=== PATIENT | male | born 1970 | race Caucasian/White ===

== ENCOUNTER 2016-06-30 07:25 | Inpatient (IN) | payer OTHER ==
[~2016-06-30 07:25] MED LIST: DEXAMETHASONE 4 MG/ML VIAL ONE; LIDOCAINE 2% 5 ML SDV ONE; PROPOFOL/EMULSION 500 MG/50 ML BOTTLE IV ONE; ROCURONIUM 100 MG/10 ML VIAL ONE; fentaNYL 250 MCG/5 ML INJ ONE
[2016-06-30] MEDS ORDERED: LIDOCAINE 1% 5 ML SDV ONE ×2 (07:34→07:49)
[2016-06-30] MEDS ORDERED: BUPIVACAINE/EPI 0.5% 30 ML SDV ONE (07:40)
[2016-06-30] MEDS ORDERED: SKIN ADHESIVE (DERMABOND) 1 EACH TP ONE ×2 (07:40→13:22)
[2016-06-30] MEDS ORDERED: MANNITOL 20% 100 GM/500 ML BAG IV ONE (07:40)
[2016-06-30] MEDS ORDERED: INDOCYANINE GREEN 25 MG VIAL ONE (07:41)
[2016-06-30] MEDS ORDERED: LR 1,000 ML IV ONE (07:51)
[2016-06-30] MEDS ORDERED: cefOXitin SODIUM 2 GM in D5W 100 ML IV ONE (09:00)
--- NOTE | 2016-06-30 09:45 | POSTOPPROG ---
Post Op Note Date of Operation: 06/30/16 Surgeon: Tommy Salcido (# [id number]) Anesthesia: GET(General Endotracheal) Pre-op Diagnosis: Left renal mass Post-op Diagnosis: Left renal mass Procedure: Robotic left partial nephrectomy, converted to radical, intraoperative u/s Findings: See op note Inf/Abcess present in the surg proc area at time of surgery?: No EBL: 500-1000 (1000 cc) Complications: None Specimen(s): Left kidney w/ perirenal fat
[2016-06-30] MEDS ORDERED: MIDAZOLAM 2 MG/2 ML VIAL ONE (10:01)
[2016-06-30] MEDS ORDERED: PROPOFOL/EMULSION 500 MG/50 ML BOTTLE IV ONE (11:43)
[2016-06-30] MEDS ORDERED: ROCURONIUM 100 MG/10 ML VIAL ONE (11:45)
[2016-06-30] MEDS ORDERED: PHENYLEPHRINE HCL 100 MCG/ML SYR ONE (12:19)
[2016-06-30] MEDS ORDERED: ALBUMIN 5% 250 ML BOTTLE IV ONE (12:27)
[2016-06-30] MEDS ORDERED: THROMBIN(HUM PLAS)/FIBRINOG/CA 5 ML VIAL TP ONE (13:00)
[2016-06-30] MEDS ORDERED: NEOSTIGMINE METHYLSULFATE 5 MG/5 ML SYR ONE (13:11)
[2016-06-30] MEDS ORDERED: GLYCOPYRROLATE 0.2 MG/1 ML VIAL ONE ×2 (13:12)
[2016-06-30] MEDS ORDERED: ONDANSETRON 4 MG/2 ML VIAL ONE (13:12)
[2016-06-30] MEDS ORDERED: ONDANSETRON 4 MG/2 ML VIAL IVP PRN (14:07)
[2016-06-30] MEDS ORDERED: PROMETHAZINE HCL 25 MG/ML INJ IVP PRN (14:07)
[2016-06-30] MEDS ORDERED: LIDOCAINE 2% JELLY 5 ML TUBE TP PRN (14:07)
[2016-06-30] MEDS ORDERED: NALOXONE HCL 0.4 MG/ML INJ IVP PRN (14:08)
[2016-06-30] MEDS ORDERED: fentaNYL 100 MCG/2 ML INJ ONE (14:18)
[2016-06-30] MEDS: D5W 1/2 NS 1,000 ML IV SCH (15:23)
[2016-06-30] MEDS: HYDROmorphONE/DILAUDID 6 MG/30 ML PCA IV PRN (15:25)
--- NOTE | 2016-06-30 15:57 | GOP ---
[f rep st] OPERATIVE REPORT DATE OF OPERATION: 06/30/2016 SURGEON: Tommy Salcido MD BILLIARD PARLOR MANAGER: Joe Boudreaux MD. ANESTHESIA: General endotracheal. PREOPERATIVE DIAGNOSIS: Endophytic abnormal left renal mass. POSTOPERATIVE DIAGNOSIS: Endophytic abnormal left renal mass. PROCEDURE PERFORMED: 1. Robotically-assisted left partial nephrectomy, converted to radical nephrectomy. 2. Intraoperative left renal ultrasonography. FINDINGS: Intraoperative identification of completely endophytic approximately 2 cm solid renal tumor. SPECIMENS: Left kidney with perirenal fat. ESTIMATED BLOOD LOSS: Approximately 1000 cc. INDICATIONS: This gentleman was recently found to have an incidental approximately 2 cm left renal mass, which was close to the hilum and endophytically located at the corticomedullary junction. It was recommended that the patient undergo intraoperative excision with left partial nephrectomy. It was explicitly explained to the patient that, based on the location of the tumor, that he might require radical nephrectomy. The indications for the procedures as well as potential risks and complications were discussed with the patient preoperatively. He appeared to understand, his questions were answered , and he wished to proceed. Written informed surgical consent was thereafter obtained. DESCRIPTION OF PROCEDURE: The patient was brought to the operating room and administered general endotracheal anesthesia. An orogastric tube was placed by Anesthesia and removed at the conclusion of the case. A Russell catheter was placed to gravity drainage. The patient was then placed over the break of the table, and the table was flexed approximately 20 degrees. The patient was placed in approximately 45 degree left flank up position using a triangular pad behind his back. The left arm was kept along his side in an foam trough, and the right arm was kept extended less than 90 degrees on an arm board. The right leg was flexed at the knee, and the left leg was kept straight over it with pillows placed in between them. The patient was thoroughly padded, then secured to the table with several wide strips of cloth tape from head to toe. The midline of the abdomen had been previously marked with a marking pen from the xiphoid down to the pubic symphysis. The table was then airplaned back and forth in order to ensure patient stability on the table, and this was confirmed. The patient was then placed in a nearly flat position. Intraabdominal access was gained with a Veress needle approximately midway between the xiphoid and the umbilicus, just to the left of midline. The abdomen was then insufflated to 15 mmHg pressure, which was the pressure maintained throughout the majority of the case. A 12 mm laparoscopic port was placed at this location, and proper intraabdominal placement was confirmed with the robotic camera. The remaining port sites were then marked and are as follows: 8 mm robotic port in the left upper quadrant approximately 1 cm below the costal margin, a second 8 mm robotic port in the left lower quadrant nearly in the same transverse line as the left upper quadrant port. A 12 mm expanded duty dental assistant port was placed in the lower midline, just below the umbilicus, under direct vision. All the ports, in fact, were placed under direct vision without complication. The patient was then airplaned into an approximately 90-degree left flank up position. The robot was then docked perpendicular to the table while keeping the camera port nearly in line with the robotic port where the camera would be placed. All of the respective ports were then attached to the appropriate robotic arms. A 12 mm 0 degree lens was used throughout the remainder of the case. Once the robot was docked, I left the patient's bedside and entered the surgeon's console. There were a reasonable amount of adhesions in the left lower quadrant between the omentum and the anterior abdominal wall which required lysis with gentle scissors dissection. The left colon was then mobilized off the lateral abdominal wall and dissected medially until the underlying perirenal fat could be identified. Along the anterior aspect, below the lower margin of the kidney, the ureter was identified. The gonadal vein was seen but it was left out of harm's way and kept medial to the remainder of the dissection. I then dissected posteriorly until the psoas fascia was visualized. The medial aspect of the perirenal tissue was then dissected in a cephalad fashion until the renal hilum was reached. I then carefully skeletonized and dissected the renal hilum thoroughly. There appeared to be 1 primary renal vein with an early takeoff from that vein that went to the upper pole. There were 2 separate renal arteries lying cephalad to the renal vein. Both of these were carefully skeletonized and dissected free to allow for placement of bulldog clamps. At this point, the kidney, with the surrounding perirenal fat, had a completely normal appearance. I then began to dissect the perirenal fat off the renal capsule circumferentially with monopolar scissors. Once the fat was completely dissected free from the kidney circumferentially, taking care to ensure that the renal hilum and ureter were not harmed, the renal surface was again inspected and no abnormalities were appreciated. Intraoperative ultrasonography was then brought onto the field. The ultrasound probe was inserted through the expanded duty dental assistant port and Dr. Boudreaux proceeded to perform sonography of the kidney. The mass could be seen sonographically in the upper to midpole junction, and was completely endophytic, as noted on preoperative CT scan. I then scored the renal capsule overlying the margin of resection. This was done with monopolar scissors. Anesthesia then administered 12.5 g of mannitol IV for renal perfusion protection purposes. I then clamped the renal hilum with vascular bulldog clamps, starting with the 2 arteries and then followed by the vein. The time was marked at this point. I then began to excise the tumor and surrounding kidney. As I cut into the kidney , it was evident that there was still some significant arterial flow within the kidney. I continued to work, but visualization became somewhat difficult due to bleeding from the cut surface of the kidney. I was ultimately able to identify a portion of the tumor as I cut more deeply. However, the bleeding persisted, and I became concerned that the patient was losing a significant amount of blood in a short period of time. Consideration was given to inserting a vascular clamp across the hilum. However, with 4 bulldog clamps already in position and not being able to remove these easily due to lack of visualization, I did not feel this would be an adequate option. After I continued to work, concerns increased that the patient was bleeding significantly and that I was not able to visualize my dissection well enough to ensure that I would be able to completely remove the tumor. Therefore, I decided to proceed to radical nephrectomy in a robotic fashion. I also chose this over open partial or radical nephrectomy, which were also both considered. A 60 mm linear vascular stapler was brought onto the field, and it was used to ligate the renal hilum just distal to the previously-placed bulldog clamps. Another round of the stapler was used to ligate the remainder of the hilum. Hemostasis was much better at this point. I then dissected the kidney from the surrounding tissue with monopolar scissors dissection and bipolar cautery. The kidney was completely free at this point and was later to be placed in a specimen bag. The hilum was then carefully inspected. At this point, no active bleeding was present. The bulldog clamps were then carefully removed, and no further bleeding ensued. The spleen was also noted to be unharmed. Once adequate hemostasis was confirmed, the specimen was retrieved in a 15 mm bag after replacing the 12 mm expanded duty dental assistant port with a 15 mm port. Eviseal was then placed along the renal hilum for further hemostatic assurance. The robot was then undocked at this point. I then returned to the patient's bedside. A fascial closure device with an 0 Vicryl suture was then used to close the 12 mm camera port site. The lower midline port site incision was then extended with scissors and cautery in order to allow for delivery of the specimen bag with the contained kidney and perirenal fat. The anterior rectus fascia at this location was then reapproximated with running 0 Vicryl suture. All the wounds were then thoroughly irrigated. The subcutaneous tissue was cauterized for hemostatic purposes as necessary. A total of 30 cc of 0.5% Marcaine with epinephrine was used for local anesthetic. All the skin edges were then reapproximated with a running 4-0 Monocryl subcuticular suture. The wounds were then dressed with Dermabond. The patient was then awakened, extubated, transferred to his bed, then taken to the recovery room. He tolerated the procedure well overall. COMPLICATIONS: None. /[id number]/MODL MTDD
[2016-06-30 16:11] LABS: HEMATOCRIT 36.4 % (40.0-51.0); HEMOGLOBIN 12.5 g/dL (13.7-17.5); MEAN CELL HEMOGLOBIN 29.5 pg (27.9-34.1); MEAN CELL HEMOGLOBIN CONCENTR. 34.3 g/dL (32.4-36.7); MEAN CELL VOLUME 85.8 fL (81.5-99.8); RED BLOOD CELL COUNT 4.24 10^6/uL (4.40-6.38); RED CELL DISTRIBUTION WIDTH 12.4 % (11.5-15.2)
[2016-06-30 16:29] LABS: ANION GAP 9 mEq/L (8-16); CARBON DIOXIDE 27 mEq/l (22-31); CHLORIDE 103 mEq/L (97-110); CREATININE 1.1 mg/dL (0.7-1.3); GLOMERULAR FILTRATION RATE > 60; GLUCOSE 158 mg/dL (70-100); POTASSIUM 4.6 mEq/L (3.5-5.2); SODIUM 139 mEq/L (134-144)
[2016-06-30] MEDS: cefOXitin SODIUM 2 GM in D5W 100 ML IV SCH ×2 (17:25→21:54)
[2016-07-01 05:19] LABS: HEMATOCRIT 32.8 % (40.0-51.0); HEMOGLOBIN 10.9 g/dL (13.7-17.5); MEAN CELL HEMOGLOBIN 29.1 pg (27.9-34.1); MEAN CELL HEMOGLOBIN CONCENTR. 33.2 g/dL (32.4-36.7); MEAN CELL VOLUME 87.7 fL (81.5-99.8); RED BLOOD CELL COUNT 3.74 10^6/uL (4.40-6.38); RED CELL DISTRIBUTION WIDTH 12.4 % (11.5-15.2)
[2016-07-01 05:51] LABS: ANION GAP 7 mEq/L (8-16); CALCIUM 8.2 mg/dL (8.5-10.4); CARBON DIOXIDE 28 mEq/l (22-31); CHLORIDE 104 mEq/L (97-110); CREATININE 1.4 mg/dL (0.7-1.3); GLOMERULAR FILTRATION RATE 55; GLUCOSE 112 mg/dL (70-100); SODIUM 139 mEq/L (134-144)
[2016-07-01] MEDS: cefOXitin SODIUM 2 GM in D5W 100 ML IV SCH ×2 (06:42→13:48)
[2016-07-01] MEDS: D5W 1/2 NS 1,000 ML IV SCH ×2 (09:31→18:25)
--- NOTE | 2016-07-01 13:26 | SOAPPROG ---
SOAP Progress Note Assessment/Plan: Assessment: POD 1 s/p robotic left radical nephrectomy - stable. Plan: 1. Ambulate. 2. Clear liquid diet today, advance to regular tomorrow. 3. Russell out in AM. 4. Switch to oral narcotics after beginning regular diet & buffcap IV at that time. 5. Reviewed intraoperative events and findings w/ pt. All questions answered. Pathology pending. Subjective: c/o mild incisional pain. Tolerating ice chips & water sips. Objective: Vital Signs Temp Pulse Resp BP Pulse Ox 36.7 C 80 18 118/79 97 07/01/16 11:07 07/01/16 11:07 07/01/16 11:07 07/01/16 11:07 07/01/16 11:07 Laboratory Results 07/01/16 04:55 07/01/16 04:55 06/30/16 07/01/16 07/02/16 05:59 05:59 05:59 Intake Total 5972 Output Total 2700 Balance 3272 Physical Exam - Physical Exam General Appearance: WD/WN, alert, no apparent distress Abdomen: soft, other (mild bobby-incisional tenderness; incisions c/d/i) Male Genitalia: other (urine clear via Russell) Skin: normal color, warm/dry Extremities: non-tender Neuro/Psych: alert, normal mood/affect, oriented x 3 ICD10 Worksheet Patient Problems: Problems Problem Status Diagnosed Renal mass of unknown nature Acute - ICD10 Problem Qualifiers (1) Renal mass of unknown nature
[2016-07-01] MEDS: HYDROmorphONE/DILAUDID 6 MG/30 ML PCA IV PRN (14:21)
[2016-07-02] MEDS: D5W 1/2 NS 1,000 ML IV SCH (02:18)
[2016-07-02 05:26] LABS: HEMATOCRIT 31.4 % (40.0-51.0); HEMOGLOBIN 10.8 g/dL (13.7-17.5); MEAN CELL HEMOGLOBIN 30.3 pg (27.9-34.1); MEAN CELL HEMOGLOBIN CONCENTR. 34.4 g/dL (32.4-36.7); RED BLOOD CELL COUNT 3.57 10^6/uL (4.40-6.38)
[2016-07-02 05:57] LABS: ANION GAP 8 mEq/L (8-16); CALCIUM 8.4 mg/dL (8.5-10.4); CARBON DIOXIDE 29 mEq/l (22-31); CHLORIDE 101 mEq/L (97-110); CREATININE 1.3 mg/dL (0.7-1.3); GLOMERULAR FILTRATION RATE 60; GLUCOSE 114 mg/dL (70-100); POTASSIUM 4.2 mEq/L (3.5-5.2); SODIUM 138 mEq/L (134-144)
[2016-07-02] MEDS: HYDROCODONE/APAP 10/325 TAB PO PRN ×2 (10:21→20:46)
[2016-07-03] MEDS: HYDROCODONE/APAP 10/325 TAB PO PRN ×3 (04:34→22:38)
--- NOTE | 2016-07-03 14:49 | SOAPPROG ---
[facility] Progress Note Assessment/Plan: Assessment: doing better - still w abd pain - not interested in home going today - possibly tomorrow Plan:possibly home tomorrow 07/03/16 14:47 Objective: Vital Signs Temp Pulse Resp BP Pulse Ox 36.7 C 83 14 117/79 86 L 07/03/16 11:49 07/03/16 11:49 07/03/16 11:49 07/03/16 11:49 07/03/16 11:49 Laboratory Results 07/02/16 05:00 07/02/16 05:00 07/02/16 07/03/16 07/04/16 05:59 05:59 05:59 Intake Total 3539 650 Output Total 3300 2650 Balance 239 -2000 Physical Exam - Physical Exam EENT: PERRL/EOMI Neck: non-tender Respiratory: chest non-tender Cardiac/Chest: normal peripheral pulses Abdomen: normal bowel sounds, soft, other (tender in flank ) ICD10 Worksheet Patient Problems: Problems Problem Status Diagnosed Renal mass of unknown nature Acute
--- NOTE | 2016-07-03 15:17 | GPROG ---
[f rep st] PROGRESS NOTE DATE OF SERVICE: 07/02/2016 PLAN: Continue current management, not ready for home going yet, patient feels he might be ready to go home Monday. Agree with this given his significant pain and hypoxia requiring oxygen. LABS: White count is 8, H and H are 10.8 and 31, platelets 139. Creatinine is 1.3, potassium 4.2, g lucose 114. PHYSICAL EXAMINATION: VITAL SIGNS: Blood pressure 121/79, 91% on 0.5 L, afebrile, heart rate is 98, respiratory rate is 16. ABDOMEN: Soft, nontender, nondistended. EXTREMITIES: No lower extremity edema. Incisions are clean, d y, and intact. HEENT: Normocephalic, atraumatic. CHEST: No retract ions. No pursed lip breathing. /[id number]/MODL
[2016-07-03 16:11] VITALS: RESP 16
[2016-07-04 08:07] VITALS: BP 127/81; PULSE 78; TEMP 98.2; O2SAT 94
--- NOTE | 2016-07-04 09:17 | SOAPPROG ---
SOAP Progress Note Assessment/Plan: Assessment: POD 4 s/p robotic left radical nephrectomy for 2 cm RCCA - doing well. Plan: 1. Ready for discharge. 2. Reviewed pathology results. No adjuvant therapy will be necessary. d/c summ. # [id number] Subjective: No complaints. Minimal pain. Eating, ambulating, and voiding well. Ready to go home. Objective: Vital Signs Temp Pulse Resp BP Pulse Ox 36.8 C 78 16 127/81 H 94 07/04/16 08:00 07/04/16 08:00 07/04/16 08:00 07/04/16 08:00 07/04/16 08:00 Laboratory Results 07/02/16 05:00 07/02/16 05:00 07/03/16 07/04/16 07/05/16 05:59 05:59 05:59 Intake Total 650 1190 Output Total 2650 1250 400 Balance -2000 -60 -400 Physical Exam - Physical Exam General Appearance: WD/WN, alert, no apparent distress Abdomen: non-tender, soft, other (incisions c/d/i) Skin: normal color, warm/dry Neuro/Psych: alert, normal mood/affect, oriented x 3 ICD10 Worksheet Patient Problems: Problems Problem Status Diagnosed Renal mass of unknown nature Acute - ICD10 Problem Qualifiers (1) Renal mass of unknown nature
--- NOTE | 2016-07-04 10:14 | GDS ---
[f rep st] DISCHARGE SUMMARY ADMISSION DIAGNOSIS: Abnormal left renal mass. DISCHARGE DIAGNOSIS: Pathologic stage T1a left renal cell carcinoma. PROCEDURE: Robotically-assisted left radical nephrectomy on 06/30/2016. HOSPITAL COURSE: Refer to the operative report for details regarding the procedure. Postoperatively , the patient did well. His hemoglobin and hematocrit stabilized above 10 and 30, respectively, and he, therefore, did not need a transfusion. Postoperative chemistry panels were unremarkable, creatin ine hovering around 1.2 to 1.3. His vital signs were stable, and he was afebrile during the postoper ative period. He was gradually advanced to a regular diet without complication. He was ambulating b y postoperative day 1. His pain progressively decreased during the postoperative course, and was wel l managed with periodic oral [place] at the time of discharge. The remainder of his physical exam was unremarkable. Pathology results were reviewed with the patient prior to discharge. He was ready for discharge on postoperative day 4. DIET: He will maintain a regular diet. ACTIVITY: Restriction instructions were provided. DISCHARGE MEDICATION: He will go home on [place] p.r.n. pain. FOLLOWUP: He will return to my office in approximately 3 weeks. /[id number]/MODL
[2016-07-04] MEDS: HYDROCODONE/APAP 10/325 TAB PO PRN (11:32)
== END 2016-07-04 11:59 | disposition home or self-care (01) | DRG 658 ==
LOC: F3N 07:25 → F1N 07:49 → F3E 15:09
PROVIDERS: ADMIT Specialist; ATTEND Specialist
PROC: 0TT14ZZ Resection of Left Kidney, Percutaneous Endoscopic Approach (ICD-10-PCS; principal; 2016-06-30 09:00)
PROC: BT42ZZZ Ultrasonography of Left Kidney (ICD-10-PCS; principal; 2016-06-30 09:00)
PROC: 8E0W4CZ Robotic Assisted Procedure of Trunk Region, Percutaneous Endoscopic Approach (ICD-10-PCS; principal; 2016-06-30 09:00)
DX: C64.2 Malignant neoplasm of left kidney, except renal pelvis (principal); R09.02 Hypoxemia
CPT/HCPCS: J0694; J1100; J1170; J2250; J2370; J2405; J2704; J2710; J3010; P9041

== ENCOUNTER → 2017-04-14 | Outpatient (CLI) | payer OTHER ==
[~2017-04-14] MED LIST changes: -DEXAMETHASONE 4 MG/ML VIAL ONE; +IOPAMIDOL (ISOVUE-300) 100 ML BTL ONE; -LIDOCAINE 2% 5 ML SDV ONE; -PROPOFOL/EMULSION 500 MG/50 ML BOTTLE IV ONE; -ROCURONIUM 100 MG/10 ML VIAL ONE; -fentaNYL 250 MCG/5 ML INJ ONE
== END ==
LOC: FIMAGING 14:12
PROVIDERS: ATTEND Specialist
DX: Z08 Encounter for follow-up examination after completed treatment for malignant neoplasm (principal); Z90.5 Acquired absence of kidney; N20.0 Calculus of kidney
CPT/HCPCS: Q9967

== ENCOUNTER → 2018-04-16 | Outpatient (CLI) | payer OTHER | LOC: FIMAGING 15:45 | PROVIDERS: ATTEND Specialist | DX: C64.2 Malignant neoplasm of left kidney, except renal pelvis (principal) ==

== ENCOUNTER → 2018-04-19 | Outpatient (CLI) | payer OTHER | LOC: FIMAGING 14:38 | PROVIDERS: ATTEND Specialist | DX: C64.2 Malignant neoplasm of left kidney, except renal pelvis (principal); N20.0 Calculus of kidney; Z90.5 Acquired absence of kidney; M51.37 Other intervertebral disc degeneration, lumbosacral region; M43.07 Spondylolysis, lumbosacral region | CPT/HCPCS: Q9967 ==